=== PATIENT | female | born 1960 | race Caucasian/White ===

== ENCOUNTER → 2016-12-04 | Outpatient (CLI) | payer OTHER, BC ==
--- NOTE | 2016-12-06 13:12 | MM ---
Reason for exam: screening (asymptomatic). Last mammogram was performed 1 year ago. History: Patient is postmenopausal and had first child at age 34. Took estrogen for 1 year. Physical Findings: A clinical breast exam by your physician is recommended on an annual basis and results should be correlated with mammographic findings. MG Screening Mammo w CAD Bilateral CC and MLO view(s) were taken. Prior study comparison: November 21, 2015, bilateral MG screening mammo w CAD. September 24, 2014, bilateral MG screening mammo w CAD. There are scattered fibroglandular densities. There is no discrete abnormality. No significant changes when compared with prior studies. ASSESSMENT: Negative, BI-RAD 1 RECOMMENDATION: Routine screening mammogram of both breasts in 1 year.
== END | disposition home or self-care (01) ==
LOC: RADMAMWWP 09:01
PROVIDERS: ATTEND Obstetrics & Gynecology
DX: Z12.31 Encounter for screening mammogram for malignant neoplasm of breast (principal)

== ENCOUNTER → 2018-04-04 | Outpatient (CLI) | payer OTHER, BC ==
--- NOTE | 2018-04-05 10:17 | BD ---
EXAMINATION TYPE: Axial Bone Density DATE OF EXAM: 04/04/2018 COMPARISON: 09.24.2014 CLINICAL HISTORY: 57 YR OLD FEMALE....ICD-10 CODE: Z13.820 SCREENING FOR OSTEOPOROSIS, M89.9 DISOR HENRY OF BONE Height: 63.5 Weight: 160 FRAX RISK QUESTIONS: History of Fracture in Adulthood: YES Current Tobacco Use: YES RISK FACTORS HISTORY OF: HX OF LT LOWER LEG FX...< 50 YRS OLD History of Wrist Fracture: LT WRIST...< 51 YRS OLD Active: YES Diet low in dairy products/other sources of calcium: NO Postmenopausal woman: YES AT 50 YRS OLD MEDICATIONS: Prednisone or other steroids: ONLY PRN Osteoporosis Medications: YES, FOSAMAX, X 3 YRS NOW Additional Medications: BP MEDS, STATINS FOR CHOLESTEROL, VIT D, HORMONE CREAM. Additional History: HYPERTENSION, OSTEOPENIA EXAM MEASUREMENTS: Bone mineral densitometry was performed using the [employer] System. Bone mineral density as measured about the Lumbar spine is: ----- L1-L4(G/cm2): 1.120 T Score Values are as follows: ----- L1: -0.9 ----- L2: -0.2 ----- L3: -0.8 ----- L4: -0.3 ----- L1-L4: -0.5 Bone mineral density has: Increased 8.9% since study of: 09.24.2014 Bone mineral density about the R hip (g/cm2): 0.892 Bone mineral density about the L hip (g/cm2): 0.911 T Score values are as follows: -----R Neck: -1.5 -----L Neck: -1.4 -----R Total: -0.9 -----L Total: -0.8 Bone mineral density has: Decreased -1.5% since study of: 09.24.2014 FRAX%s: THERE IS A 12.8% CHANCE OF MAJOR OSTEOPOROTIC FX AND A 1.9% FOR A HIP FX......PROBABILITY OF FX IN 10 YRS TIME IMPRESSION: Osteopenia (T Score between -2.5 and -1). There is slightly increased risk of fracture and the patient may be considered for treatment. Re-Screen 2-5 years. NOTE: T-SCORE=SD OF THE YOUNG ADULT MEAN.
--- NOTE | 2018-04-05 12:17 | MM ---
Reason for exam: screening (asymptomatic). Last mammogram was performed 1 year and 4 months ago. History: Patient is postmenopausal and had first child at age 34. Took estrogen for 1 year. Physical Findings: A clinical breast exam by your physician is recommended on an annual basis and results should be correlated with mammographic findings. MG Screening Mammo w CAD Bilateral CC and MLO view(s) were taken. Prior study comparison: December 04, 2016, bilateral MG screening mammo w CAD. November 21, 2015, bilateral MG screening mammo w CAD. The breast tissue is heterogeneously dense. This may lower the sensitivity of mammography. No suspicious abnormality. No significant changes when compared with prior studies. ASSESSMENT: Negative, BI-RAD 1 RECOMMENDATION: Routine screening mammogram of both breasts in 1 year.
== END | disposition home or self-care (01) ==
LOC: RADMAMWWP 15:03
PROVIDERS: ATTEND Obstetrics & Gynecology
DX: Z12.31 Encounter for screening mammogram for malignant neoplasm of breast (principal); Z13.820 Encounter for screening for osteoporosis; M85.80 Other specified disorders of bone density and structure, unspecified site
CPT/HCPCS: 77067; 77080

== ENCOUNTER → 2019-06-09 | Outpatient (CLI) | payer OTHER, BC ==
--- NOTE | 2019-06-12 09:33 | MM ---
Reason for exam: screening (asymptomatic). Last mammogram was performed 1 year and 2 months ago. History: Patient is postmenopausal and had first child at age 34. Took estrogen for 1 year. Physical Findings: A clinical breast exam by your physician is recommended on an annual basis and results should be correlated with mammographic findings. MG Screening Mammo w CAD Bilateral CC and MLO view(s) were taken. Prior study comparison: April 04, 2018, bilateral MG screening mammo w CAD. December 04, 2016, bilateral MG screening mammo w CAD. The breast tissue is heterogeneously dense. This may lower the sensitivity of mammography. There is no discrete abnormality. ASSESSMENT: Negative, BI-RAD 1 RECOMMENDATION: Routine screening mammogram of both breasts in 1 year.
== END | disposition home or self-care (01) ==
LOC: RADMAMWWP 09:00
PROVIDERS: ATTEND Obstetrics & Gynecology
DX: Z12.31 Encounter for screening mammogram for malignant neoplasm of breast (principal)
CPT/HCPCS: 77067

== ENCOUNTER → 2020-04-03 | Outpatient (CLI) | payer OTHER ==
--- NOTE | 2020-04-03 10:12 | XR ---
Right shoulder HISTORY: Right shoulder strain, pain 4 views of the right shoulder Bone mineralization, joint spaces and alignment are maintained. No fracture or dislocation. IMPRESSION: Normal right shoulder.
== END | disposition home or self-care (01) ==
LOC: RADXRMAIN 09:47
PROVIDERS: ATTEND Emergency Medicine
DX: S46.911A Strain of unspecified muscle, fascia and tendon at shoulder and upper arm level, right arm, initial encounter (principal)

== ENCOUNTER → 2020-11-03 | Outpatient (CLI) | payer BC ==
--- NOTE | 2020-11-03 19:27 | BD ---
EXAMINATION TYPE: Axial Bone Density DATE OF EXAM: 11/03/2020 COMPARISON: 04/04/2018 CLINICAL HISTORY: Postmenopausal screening Height: 63.7 IN Weight: 159 LBS FRAX RISK QUESTIONS: Current Tobacco Use: YES RISK FACTORS HISTORY OF: History of Wrist Fracture: LT WRIST AGE 7 Active: YES Postmenopausal woman: AGE 53 MEDICATIONS: Osteoporosis Medications: YES Which medication: Actonel How Lon YEARS Additional Medications: VIT D, ACTONEL, ATORVASTATIN, ATENOLOL, VITAMINS EXAM MEASUREMENTS: Bone mineral densitometry was performed using the [employer] System. Bone mineral density as measured about the Lumbar spine is: ----- L1-L4(G/cm2): 1.154 T Score Values are as follows: ----- L2: 0.5 ----- L3: -0.3 ----- L4: -0.4 ----- L1-L4: -0.2 Bone mineral density has: Increased 3.3% since study of: 04/04/2018 Bone mineral density about the R hip (g/cm2): 0.834 Bone mineral density about the L hip (g/cm2): 0.849 T Score values are as follows: -----R Neck: -1.5 -----L Neck: -1.4 -----R Total: -0.8 -----L Total: -0.7 Bone mineral density has: Increased 1.6% since study of: 04/04/2018 IMPRESSION: Osteopenia (T Score between -2.5 and -1). There is slightly increased risk of fracture and the patient may be considered for treatment. Re-Screen 2-5 years. NOTE: T-SCORE=SD OF THE YOUNG ADULT MEAN.
--- NOTE | 2020-11-05 08:22 | MM ---
Reason for exam: screening (asymptomatic). Last mammogram was performed 1 year and 5 months ago. History: Patient is postmenopausal and had first child at age 34. Took hormonal contraceptives for 5 years. Took estrogen for 1 year. Physical Findings: A clinical breast exam by your physician is recommended on an annual basis and results should be correlated with mammographic findings. MG Screening Mammo w CAD Bilateral CC and MLO view(s) were taken. Prior study comparison: June 09, 2019, bilateral MG screening mammo w CAD. April 04, 2018, bilateral MG screening mammo w CAD. There are scattered fibroglandular densities. No significant changes when compared with prior studies. ASSESSMENT: Benign, BI-RAD 2 RECOMMENDATION: Routine screening mammogram of both breasts in 1 year.
== END ==
LOC: RADMAMWWP 15:03
PROVIDERS: ATTEND Obstetrics & Gynecology
DX: Z12.31 Encounter for screening mammogram for malignant neoplasm of breast (principal); Z13.820 Encounter for screening for osteoporosis; M85.89 Other specified disorders of bone density and structure, multiple sites; Z78.0 Asymptomatic menopausal state
CPT/HCPCS: 77067; 77080

== ENCOUNTER → 2021-12-17 | Outpatient (CLI) | payer BC ==
--- NOTE | 2021-12-23 08:25 | MM ---
Reason for exam: screening (asymptomatic). Last mammogram was performed 1 year and 1 month ago. History: Patient is postmenopausal and had first child at age 34. Took hormonal contraceptives for 5 years. Took estrogen for 1 year. Physical Findings: A clinical breast exam by your physician is recommended on an annual basis and results should be correlated with mammographic findings. MG Screening Mammo w CAD Bilateral CC, MLO, and XCCL view(s) were taken. Prior study comparison: November 03, 2020, bilateral MG screening mammo w CAD. June 09, 2019, bilateral MG screening mammo w CAD. There are scattered fibroglandular densities. Focal asymmetry left MLO view. This finding is changed when compared with previous exams. ASSESSMENT: Incomplete: need additional imaging evaluation, BI-RAD 0 RECOMMENDATION: Special view mammogram of the left breast. If lesion persists on supplemental views, image directed ultrasound is recommended. [facility] will attempt to contact patient to return for supplemental views and ultrasound if indicated.
== END | disposition home or self-care (01) ==
LOC: RADMAMWWP 09:26
PROVIDERS: ATTEND Obstetrics & Gynecology
DX: Z12.31 Encounter for screening mammogram for malignant neoplasm of breast (principal); Z78.0 Asymptomatic menopausal state
CPT/HCPCS: 77067

== ENCOUNTER → 2021-12-24 | Outpatient (CLI) | payer BC ==
--- NOTE | 2021-12-24 12:41 | MM ---
Reason for exam: additional evaluation requested from abnormal screening. Last mammogram was performed less than 1 month ago. History: Patient is postmenopausal and had first child at age 34. Took hormonal contraceptives for 5 years. Took estrogen for 1 year. Physical Findings: A clinical breast exam by your physician is recommended on an annual basis and results should be correlated with mammographic findings. MG 3D Work Up W/Cad LT LM and spot compression MLO view(s) were taken of the left breast. Prior study comparison: December 17, 2021, bilateral MG screening mammo w CAD. November 03, 2020, bilateral MG screening mammo w CAD. April 04, 2018, bilateral MG screening mammo w CAD. There are scattered fibroglandular densities. No significant new findings when compared with previous films. Results were given to the patient verbally at the time of the exam. ASSESSMENT: Probably benign, BI-RAD 3 RECOMMENDATION: Follow-up diagnostic mammogram of the left breast in 6 months.
== END | disposition home or self-care (01) ==
LOC: RADMAMWWP 08:43
PROVIDERS: ATTEND Obstetrics & Gynecology
DX: R92.8 Other abnormal and inconclusive findings on diagnostic imaging of breast (principal); Z78.0 Asymptomatic menopausal state
CPT/HCPCS: 77061; 77065

== ENCOUNTER → 2022-06-28 | Outpatient (CLI) | payer BC ==
--- NOTE | 2022-06-28 11:19 | MM ---
Reason for Exam: Follow-up at short interval from prior study. Last screening mammogram was performed 6 month(s) ago. Patient History: Menarche at age 13. First Full-Term at age 34. Late child-bearing (after 30). Postmenopausal. Patient used Estrogen for 1 year. Patient used Hormonal Contraceptives for 5 years. Risk Values: Marilin 5 year model risk: 2.0%. NCI Lifetime model risk: 9.7%. Prior Study Comparison: 11/03/2020 Bilateral Screening Mammogram, [facility]. 12/17/2021 Bilateral Screening Mammogram, [facility]. 12/24/2021 Left Diagnostic Mammogram, [facility]. Tissue Density: Left: The breast tissue is heterogeneously dense. This may lower the sensitivity of mammography. Findings: Analyzed By CAD. Area of concern within the left breast retroalveolar and slightly inferior on left MLO view seen on 12/17/2021 is not definitively visualized on today's exam. Area of concern within the left breast retroalveolar and slightly inferior on left MLO view seen on 12/17/2021 is not definitively visualized on today's exam. No suspicious masses, consultations or distortions. Overall Assessment: Negative, BI-RAD 1 Management: Screening Mammogram of both breasts in 1 year. A clinical breast exam by your physician is recommended on an annual basis and results should be correlated with mammographic findings. This exam should not preclude additional follow-up of suspicious palpable abnormalities. Results were given to the patient verbally at the time of exam. Electronically signed and approved by: Bridger Gleason DO
== END | disposition home or self-care (01) ==
LOC: RADMAMWWP 10:43
PROVIDERS: ATTEND Obstetrics & Gynecology
DX: R92.8 Other abnormal and inconclusive findings on diagnostic imaging of breast (principal); Z78.0 Asymptomatic menopausal state
CPT/HCPCS: 77061; 77065

== ENCOUNTER → 2022-11-26 | Outpatient (CLI) | payer BC ==
--- NOTE | 2022-11-26 15:53 | US ---
EXAMINATION TYPE: US kidneys/renal and bladder DATE OF EXAM: 11/26/2022 COMPARISON: 11/12/2022 CLINICAL HISTORY: N13.39 hydronephrosis, R10.11 RUQ pain, R93.41 abnormal find. EXAM MEASUREMENTS: Right Kidney: 13.2 x 4.6 x 4.8 cm Left Kidney: 11.7 x 5.3 x 4.8 cm Right Kidney: Hydronephrosis similar to prior exam Left Kidney: wnl Bladder: wnl Bilateral Jets seen: Yes No nephrolithiasis is seen. No masses are identified. The urinary bladder is anechoic. Bilateral u reteral jets are seen. IMPRESSION: Stable severe right-sided hydronephrosis.
== END | disposition home or self-care (01) ==
LOC: RADUSWWP 15:28
PROVIDERS: ATTEND Family Medicine
DX: N13.39 Other hydronephrosis (principal); R10.11 Right upper quadrant pain; R93.41 Abnormal radiologic findings on diagnostic imaging of renal pelvis, ureter, or bladder
CPT/HCPCS: 76770

== ENCOUNTER → 2022-12-10 | Outpatient (CLI) | payer BC ==
--- NOTE | 2022-12-10 11:20 | CT ---
EXAMINATION TYPE: CT urogram wo/w con DATE OF EXAM: 12/10/2022 HISTORY: Rt kidney pain. Recent abnormal ultrasound. CT DLP: 2505mGycm Automated Exposure Control for Dose Reduction was Utilized. CONTRAST: CT scan of the abdomen and pelvis is performed without oral and without and with IV Contrast, patient injected with 100 mL of Isovue 300. Urogram protocol with 3-D reconstructed images created on an [employer] workstation and reviewed. COMPARISON: Renal ultrasound March 28, 2023 FINDINGS: KUB: No renal calculi seen bilaterally on noncontrast images. Postcontrast images show symmetric patt ical medullary uptake and excretion with severe right-sided hydronephrosis redemonstrated. There is o ccasional subcentimeter rounded low dense lesion in the right kidney. No concerning solid or cystic m ass in the left kidney. Opacified left ureter shows no worrisome mass or calculus. There is no right- sided hydroureter but port contrast uptake identified. Urinary bladder appears within normal limits w ithout intraluminal mass or calculus. LUNG BASES: No significant abnormality is appreciated. LIVER/GB: Cholecystectomy clips are present. PANCREAS: No significant abnormality is seen. SPLEEN: No significant abnormality is seen. ADRENALS: No significant abnormality is seen. KIDNEYS: No significant abnormality is seen. BOWEL: No significant abnormality is seen. UTERUS/ADNEXA: Anteverted uterus. LYMPH NODES: No greater than 1cm abdominal or pelvic lymph nodes are appreciated. OSSEOUS STRUCTURES: No significant abnormality is seen. OTHER: No significant additional abnormality is seen. IMPRESSION: Severe right-sided hydronephrosis redemonstrated. There is no delayed excretion or hydrou reter. Findings are consistent with a UPJ stricture or stenosis.
== END | disposition home or self-care (01) ==
LOC: RADCTMAIN 09:54
PROVIDERS: ATTEND Urology
DX: N13.30 Unspecified hydronephrosis (principal)
CPT/HCPCS: 74178; 74400; Q9967

== ENCOUNTER → 2022-12-22 | Outpatient (CLI) | payer BC ==
[~2022-12-22] MED LIST: FUROSEMIDE 10 MG/ML 2 ML VIAL IV ONE
--- NOTE | 2022-12-23 08:14 | NM ---
EXAMINATION TYPE: NM lasix renogram DATE OF EXAM: 12/22/2022 COMPARISON: NONE HISTORY: N13.30 right flank pain and pelvic pain Following administration of 10.3 mCi Tc 99m MAG3 with 20mg Lasix. Immediate images post injection FINDINGS: Left: 56.8 %. Right: 43.2 %. Max renal flow left: 3.0 minutes. Max renal flow right: 3.5 minutes. Satisfactory accumulation of radiotracer within both renal collecting systems. After the administrati on of Lasix, there is prompt excretion from both collecting systems. T 1/2 left: 16.7 minutes. T 1/2 right: NA minutes. There is symmetrical flow into the bilateral kidneys. Excretion initially is symmetrical. However, th ere is continual increased radiotracer within the left renal pelvis. IMPRESSION: 1. Right renal collecting system obstruction. 2. Diminished right renal excretion.
== END | disposition home or self-care (01) ==
LOC: RADNMMAIN 11:46
PROVIDERS: ATTEND Urology
DX: N13.30 Unspecified hydronephrosis (principal); N28.89 Other specified disorders of kidney and ureter
CPT/HCPCS: 78708; A9562

== ENCOUNTER → 2023-02-10 | Outpatient (CLI) | payer BC ==
[2023-02-10 15:57] LABS: BUN/Creat Ratio 28.33 Ratio (12.00-20.00); Calcium 9.7 mg/dL (8.7-10.3); Carbon Dioxide 26.4 mmol/L (21.6-31.8); Chloride 100 mmol/L (96-109); Glucose 95 mg/dL (70-110); Potassium 3.8 mmol/L (3.5-5.5); Sodium 138 mmol/L (135-145)
[2023-02-10 16:08] LABS: Appearance,Urine Clear (Clear); Bilirubin,Urine Negative (Negative); Blood,Urine Negative (Negative); Color,Urine Yellow (Yellow); Ketones,Urine Negative (Negative); Nitrite,Urine Negative (Negative); PH, Urine 6.5; Specific Gravity,Urine 1.017 (1.001-1.030); Urobilinogen,Urine 0.2
[2023-02-10 20:35] LABS: Basophils # (A) 0.04 X 10*3/uL (0.00-0.10); Basophils % (A) 0.5 %; Eosinophils # (A) 0.17 X 10*3/uL (0.04-0.35); Eosinophils % (A) 2.2 %; HCT 44.5 % (37.2-46.3); HGB 14.7 d/dL (12.0-15.0); Lymphocytes # (A) 2.08 X 10*3/uL (0.90-5.00); Lymphocytes % (A) 27.5 %; MCH 29.6 pg (27.0-32.0); MCV 89.7 FL (80.0-97.0); Mean Platelet Volume 11.1 FL (9.5-12.2); Monocytes # (A) 0.59 X 10*3/uL (0.20-1.00); Monocytes % (A) 7.8 %; NRBC Per 100 WBC 0 X 10*3/uL (0.00-0.01); Neutrophils # (A) 4.65 X 10*3/uL (1.80-7.70); Neutrophils % (A) 61.6 %; Platelet Count 272 X 10*3/uL (140-440); RBC 4.96 X 10*6/uL (4.10-5.20); WBC 7.56 X 10*3/uL (4.50-10.00)
== END | disposition home or self-care (01) ==
LOC: LABPAT 10:27
PROVIDERS: ATTEND Urology
DX: Z01.812 Encounter for preprocedural laboratory examination (principal); N13.30 Unspecified hydronephrosis; R31.29 Other microscopic hematuria
CPT/HCPCS: 36415; 80048; 81003; 85025; 87086

== ENCOUNTER 2023-02-17 12:52 | Day surgery (SDC) | payer BC ==
[2023-02-15 10:23] VITALS: BMI 27.4
[~2023-02-17 12:52] MED LIST changes: +DEXAMETHASONE SOD PHOSPHATE 4 MG/ML 1 ML VIAL IV ONE; -FUROSEMIDE 10 MG/ML 2 ML VIAL IV ONE; +HYDROmorphone 0.5 MG/0.5 ML SYRINGE IVP PRN; +ONDANSETRON 4 MG/2 ML VIAL IVP ONE
[2023-02-17] MEDS: HEPARIN SODIUM,PORCINE/PF 5,000 UNIT/0.5 ML SYRINGE SQ PRN ×2 (13:32→14:14)
[2023-02-17] MEDS: LACTATED RINGERS 1,000 ML IV SCH (13:32)
[2023-02-17] MEDS ORDERED: MIDAZOLAM 2 MG/2 ML VIAL IVP ONE (13:47)
[2023-02-17] MEDS ORDERED: HYDROmorphone 1 MG/ML 1 ML SYRINGE IVP PRN (14:18)
[2023-02-17] MEDS ORDERED: ONDANSETRON 4 MG/2 ML VIAL IVP PRN (14:18)
--- NOTE | 2023-02-17 14:22 | P.HPIHPCON ---
History of Present Illness H&P Date: 02/17/23 This is a 62-year-old female with history of right-sided hydronephrosis, seen on a CT urogram. She is symptomatic from her hydronephrosis. Underwent a Lasix renogram which was consistent with obstruction. Discussed with her given this finding the option of a robotic pyeloplasty versus endopyelotomy. Risk and benefit of each approach was discussed. She agreed to pyeloplasty. Discussed risk which includes but not limited to bleeding, infection, injury to nearby organs, potential of recurrence of stricture, potential requiring nephrectomy. Discussed the potential persistent pain. Risks of medical complication was also discussed. She understood all the risk and agreed to proceed with a robotic right-sided pyeloplasty Consent for Procedure: I have explained the operation/procedure to the patient, including the risks, benefits, side effects, alternative therapies (including not receiving the proposed treatment or service), the likelihood of the patient achieving his/her goals, and potential recuperation problems for the procedure/sedation/analgesia, as well as any blood products, if indicated. I also explained to the patient the risks, benefits and side effects of the alternatives, as well as the risks related to not receiving the proposed procedure, care, treatment, or services. Past Medical History Past Medical History: Hyperlipidemia, Hypertension, Skin Disorder Additional Past Medical History / Comment(s): Heart skips beats sometimes. Psoriasis. History of Any Multi-Drug Resistant Organisms: None Reported Past Surgical History: Section, Cholecystectomy Past Anesthesia/Blood Transfusion Reactions: No Reported Reaction Past Psychological History: No Psychological Hx Reported Smoking Status: Current every day smoker Past Alcohol Use History: Occasional Additional Past Alcohol Use History / Comment(s): Smokes 6-7 cigarettes daily, started at age 19. Past Drug Use History: None Reported - Past Family History Mother Family Medical History: Deep Vein Thrombosis (DVT) Sister(s) Family Medical History: Cancer Additional Family Medical History / Comment(s): Pancreatic cancer. Medications and Allergies Home Medications Medication Instructions Recorded Confirmed Type Atenolol/Chlorthalidone 1 each PO QAM 02/15/23 02/15/23 History [Atenolol-Chlorthalidone 100-25] Rosuvastatin Calcium 40 mg PO QAM 02/15/23 02/15/23 History lisinopriL [Zestril] 10 mg PO QAM 02/15/23 02/15/23 History Allergies Allergy/AdvReac Type Severity Reaction Status Date / Time No Known Allergies Allergy Verified 02/17/23 13:17 Surgical - Exam Vital Signs Temp Pulse Resp BP Pulse Ox 97.5 F L 58 L 16 155/70 97 02/17/23 13:15 02/17/23 13:15 02/17/23 13:15 02/17/23 13:15 02/17/23 13:15 - General no distress, no pain - Eyes normal ocular movement, no pale - ENT normal nares, normal mucosa - Respiratory normal expansion, normal respiratory effort - Psychiatric oriented to time, oriented to person, oriented to place Assessment and Plan Assessment: OR for right-sided robotic pyeloplasty
[2023-02-17] MEDS ORDERED: MIDAZOLAM 2 MG/2 ML VIAL ONE (14:58)
[2023-02-17] MEDS ORDERED: fentaNYL (PF) 50 MCG/ML 2 ML AMP ONE (14:58)
[2023-02-17] MEDS ORDERED: SUCCINYLCHOLINE CHLORIDE 200 MG/10 ML VIAL IV ONE (14:58)
[2023-02-17] MEDS ORDERED: HYDROmorphone (PF) 1 MG/ML ONE (14:58)
[2023-02-17] MEDS ORDERED: LIDOCAINE 2% INJ 20 MG/ML (2 ML VIAL) ONE (14:58)
[2023-02-17] MEDS ORDERED: NEOSTIGMINE 1 MG/ML 10 ML VIAL ONE (14:58)
[2023-02-17] MEDS ORDERED: PROPOFOL 10 MG/ML 20 ML VIAL IV ONE (14:58)
[2023-02-17] MEDS ORDERED: ROCURONIUM 10 MG/ML (5 ML VIAL) IV ONE (14:58)
[2023-02-17] MEDS ORDERED: ROPIVACAINE 5 MG/ML 30 ML VIAL ONE (14:58)
[2023-02-17] MEDS ORDERED: DEXAMETHASONE SOD PHOSPHATE 4 MG/ML 1 ML VIAL ONE (14:58)
[2023-02-17] MEDS ORDERED: GLYCOPYRROLATE 0.2 MG/ML 2 ML VIAL ONE (14:58)
[2023-02-17] MEDS ORDERED: SODIUM CHLORIDE 0.9% (PF) 10 ML VIAL ONE (14:58)
[2023-02-17] MEDS ORDERED: KETOROLAC 30 MG/ML 1 ML VIAL ONE (14:58)
[2023-02-17] MEDS ORDERED: BUPIVACAINE (PF) 0.25% 30 ML VIAL SQ ONE (15:40)
--- NOTE | 2023-02-17 17:30 | P.OP ---
Date of Procedure: 02/17/23 Preoperative Diagnosis: Right-sided hydronephrosis Postoperative Diagnosis: same Procedure(s) Performed: Robotic-assisted laparoscopic pyeloplasty on the right Implants: 6FR x 24 cm stent Anesthesia: DARRIN Surgeon: Prosper Bose Estimated Blood Loss (ml): 25 Pathology: other (UPJ) Condition: stable Disposition: PACU Indications for Procedure: This is a 62-year-old female with history of right-sided hydronephrosis, seen on a CT urogram. She is symptomatic from her hydronephrosis. Underwent a Lasix renogram which was consistent with obstruction. Discussed with her given this finding the option of a robotic pyeloplasty versus endopyelotomy. Risk and benefit of each approach was discussed. She agreed to pyeloplasty. Discussed risk which includes but not limited to bleeding, infection, injury to nearby organs, potential of recurrence of stricture, potential requiring nephrectomy. Discussed the potential persistent pain. Risks of medical complication was also discussed. She understood all the risk and agreed to proceed with a robotic r ight-sided pyeloplasty Description of Procedure: The patient was taken to the operating room . General anesthesia was induced. She was prepped and draped in sterile fashion, she was placed in modified flank position . All pressure points were padded. The abdominal insufflation was achieved with the Veress needle. A 8 mm camera port was placed. Robotic trocars and assistant baseball coach ports were placed under direct vision. The robot was docked into place. The colon was mobilized medially by incising along the white line of Toldt. At this time the the ureter was visualized. . Dissection off the ureter was carried all the way up to the renal pelvis. Of note involving the UPJ and the renal pelvis there was significant inflammatory response. After the pelvis and the ureter was mobilized, At this time the ureter was disconnected from the renal pelvis. The ureter was spatulated. It was noted that the UPJ was narrowed, additionally there was a crossing vessel but it did not appear to be compressing on the UPJ. At this time ureter was reanastomosed back to the renal pelvis using 4-0 vlock in running fashion. Ensuring that the anastomosis was done at the most dependent portion of the renal pelvis. After completing the posterior portion of the anastomosis a sensor wire was advanced through an Angiocath was placed along the lateral surface of the abdomen. The sensor wire was guided to the ureter next a ureteral stent was passed over the wire. Ensuring that the stent was advanced all the way up into the bladder. Next the anastomosis was completed. The crossing vessel was further mobilized away from from the renal pelvis to ensure that it's not compressing the UPJ at all. A A PETER drain was placed through the lower robotic trocor incision. The robot was then de-docked . Staff Accountant fascia was closed using 0 Vicryl. . Skin was closed with subcuticular sutures and dermabond. The patient was awoken from general anesthesia in stable condition. all counts were correct Please refer to the final pathology report for final diagnosis
--- NOTE | 2023-02-17 20:43 | P.ANPRN ---
Procedure Note - Anesthesia - Nerve Block Performed Bilateral Erector Spinae Single Time Out Performed: Yes Date of Procedure: 02/17/23 Procedure Start Time: 13:47 Procedure Stop Time: 13:54 Location of Patient: PreOp Indication: Acute Post-Operative Pain, Requested by Surgeon Sedation Type: Sedate with meaningful contact maintained Preparation: Sterile Prep Position: Prone Needle Types: Pajunk Needle Gauge: 21 Ultrasound used to visualize needle placement: Yes Ultrasound used to observe medication spread: Yes Blood Aspirated: No Pain Paresthesia on Injection Noted: No Resistance on Injection: Normal Image Stored and Saved: Yes Events: Uneventful and Well Tolerated (Ropivacaine 0.5% 15 mL plus normal saline 10 mL plus dexamethasone 4 mg given bilaterally at L1)
[2023-02-17] MEDS: KETOROLAC 15 MG/ML 1 ML VIAL IVP SCH ×2 (21:08→23:46)
[2023-02-17] MEDS: D5-0.45% NACL WITH KCL 20MEQ/L 1,000 ML IV SCH (21:09)
[2023-02-17] MEDS: HEPARIN SODIUM,PORCINE/PF 5,000 UNIT/0.5 ML SYRINGE SQ SCH (21:13)
[2023-02-17] MEDS: HYDROcodone/APAP 5-325MG 1 EACH TAB PO PRN (23:47)
[2023-02-18] MEDS: D5-0.45% NACL WITH KCL 20MEQ/L 1,000 ML IV SCH ×2 (01:03→04:29)
[2023-02-18] MEDS: HEPARIN SODIUM,PORCINE/PF 5,000 UNIT/0.5 ML SYRINGE SQ SCH (06:11)
[2023-02-18] MEDS: KETOROLAC 15 MG/ML 1 ML VIAL IVP SCH ×2 (06:11→13:17)
[2023-02-18] MEDS: LACTATED RINGERS 1,000 ML IV SCH (08:03)
[2023-02-18] MEDS: HYDROcodone/APAP 5-325MG 1 EACH TAB PO PRN ×2 (08:10→13:16)
--- NOTE | 2023-02-18 08:26 | P.PN ---
Subjective Progress Note Date: 02/18/23 Principal diagnosis: UPJ Obstruction, s/p pyeloplasty The patient underwent an uncomplicated robotic-assisted laparoscopic right pyeloplasty yesterday. She had no problems overnight, but this morning experienced right-sided abdominal pain which is currently subsiding. She denies chest pain, shortness of breath, nausea, and vomiting. Objective - Vital Signs Vital signs: Vital Signs Temp 98 F 02/18/23 07:00 Pulse 60 02/18/23 07:00 Resp 14 02/18/23 07:00 BP 118/64 02/18/23 07:00 Pulse Ox 96 02/18/23 07:00 FiO2 Intake & Output 02/17/23 02/18/23 02/18/23 18:59 06:59 18:59 Intake Total 1600 Output Total 175 600 Balance 1425 -600 Weight 73.074 kg 73.074 kg Intake: IV 1600 Output: Urine 150 600 Estimated Blood Loss 25 Other: Voiding Method Toilet - Constitutional General appearance: Present: average body habitus, no acute distress - Gastrointestinal Gastrointestinal Comment(s): Soft, nondistended. Incisions clean, dry, and intact. - Psychiatric Psychiatric: Present: A&O x's 3 Assessment and Plan (1) Ureteropelvic junction (UPJ) obstruction Current Visit: Yes Status: Acute Code(s): N13.5 - CROSSING VESSEL AND STRICTURE OF URETER W/O HYDRONEPHROSIS SNOMED Code(s): 44513417 Plan: The Ramos catheter and PETER drain will be removed, as there is minimal PETER output. Discharge home is anticipated later today or tomorrow morning.
[2023-02-18] MEDS ORDERED: lisinopriL 10 MG TAB PO SCH (09:00)
[2023-02-18] MEDS ORDERED: atenoloL 50 MG TAB PO SCH (09:00)
[2023-02-18] MEDS ORDERED: ATORVASTATIN 80 MG TAB PO SCH (09:00)
[2023-02-18] MEDS ORDERED: CHLORTHALIDONE 25 MG TAB PO SCH (09:00)
--- NOTE | 2023-02-18 13:13 | P.DS ---
Providers Expected date of discharge: 02/18/23 Attending physician: Prosper Bose MD Primary care physician: Naren Melgar - Discharge Diagnosis(es) (1) Ureteropelvic junction (UPJ) obstruction Current Visit: Yes Status: Acute Hospital Course: On the day of admission, the patient underwent an uncomplicated robotic-assisted laparoscopic right pyeloplasty. She had no problems overnight, but the morning after surgery she experienced right-sided abdominal pain which subsided. She denied chest pain, shortness of breath, nausea, and vomiting. Examination was unremarkable, and she was discharged home. Procedures: Robotic-assisted laparoscopic right pyeloplasty on 02/17/2023. Patient Condition at Discharge: Good Plan - Discharge Summary Discharge Rx Participant: Yes New Discharge Prescriptions: New Tolterodine ER [Detrol LA] 4 mg PO DAILY #30 cap HYDROcodone/APAP 5-325MG [Rayle 5-325] 1 - 2 tab PO Q6HR PRN #6 tab PRN Reason: Pain No Action lisinopriL [Zestril] 10 mg PO QAM Atenolol/Chlorthalidone [Atenolol-Chlorthalidone 100-25] 1 each PO QAM Rosuvastatin Calcium 40 mg PO QAM Discharge Medication List Atenolol/Chlorthalidone [Atenolol-Chlorthalidone 100-25] 1 each PO QAM 02/15/23 [History] Rosuvastatin Calcium 40 mg PO QAM 02/15/23 [History] lisinopriL [Zestril] 10 mg PO QAM 02/15/23 [History] HYDROcodone/APAP 5-325MG [Rayle 5-325] 1 - 2 tab PO Q6HR PRN #6 tab 02/18/23 [Rx] Tolterodine ER [Detrol LA] 4 mg PO DAILY #30 cap 02/18/23 [Rx] Follow up Appointment(s)/Referral(s): Prosper Bose MD [STAFF PHYSICIAN] - 03/16/23 Activity/Diet/Wound Care/Special Instructions: Diet as tolerated. Drink plenty of fluids. No lifting or strenuous activity. Discharge Disposition: HOME SELF-CARE
[2023-02-18 14:23] VITALS: BP 127/72; PULSE 55; RESP 16; TEMP 98.2
== END 2023-02-18 14:31 | disposition home or self-care (01) ==
LOC: OR 12:52 → 4SSUR 17:49 → OR 02-18 14:31
PROVIDERS: ATTEND Urology
DX: N13.1 Hydronephrosis with ureteral stricture, not elsewhere classified (principal); I10 Essential (primary) hypertension; E78.5 Hyperlipidemia, unspecified; Z98.891 History of uterine scar from previous surgery; Z90.49 Acquired absence of other specified parts of digestive tract; F17.200 Nicotine dependence, unspecified, uncomplicated; Z79.899 Other long term (current) drug therapy
CPT/HCPCS: 50544; 64999; 86900; 86901; 86850; C1769 ×2; J2250; J1100; J0690; J2405 ×2; J1170; J1885 ×2; J1644 ×2; 88307

== ENCOUNTER → 2023-04-15 | Outpatient (CLI) | payer BC ==
--- NOTE | 2023-04-15 15:39 | XR ---
EXAMINATION TYPE: XR thoracic spine complete DATE OF EXAM: 04/15/2023 CLINICAL HISTORY: pain TECHNIQUE: Frontal, lateral, and swimmer's view of thoracic spine are obtained. COMPARISON: None. FINDINGS: Thoracic spine show satisfactory alignment without evidence of acute fracture or dislocatio n. Vertebral body heights are preserved. Mild scattered degenerative disc space narrowing and spondy losis. Visualized ribs are unremarkable. IMPRESSION: No acute fracture or dislocation is seen in the thoracic spine. ICD 10 NO FRACTURE, INIT IAL EVALUATION
== END | disposition home or self-care (01) ==
LOC: RADXRYALE 15:12
PROVIDERS: ATTEND Physician Assistant Medical
DX: M54.6 Pain in thoracic spine (principal)
CPT/HCPCS: 72072

== ENCOUNTER → 2023-06-29 | Outpatient (CLI) | payer BC ==
--- NOTE | 2023-06-29 23:34 | BD ---
EXAMINATION TYPE: Axial Bone Density DATE OF EXAM: 06/29/2023 CLINICAL HISTORY: 63 years old Female. ICD-10 CODE: M85.88 other bone issue Height: 63.7 in Weight: 159 lbs FRAX RISK QUESTIONS: History of Fracture in Adulthood: lt tib/fib fx age 53; rib fx age 59 Current Tobacco Use: yes RISK FACTORS HISTORY OF: History of Wrist Fracture: lt age 7 Active: yes Postmenopausal woman: age 56 MEDICATIONS: Osteoporosis Medications: yes Which medication: Boniva How Lon years Additional Medications: vit d,cholesterol meds, blood pressure meds EXAM MEASUREMENTS: Bone mineral densitometry was performed using the [employer] System. Bone mineral density as measured about the Lumbar spine is: ----- L1-L4(G/cm2): 1.161 T Score Values are as follows: ----- L1: -0.1 ----- L2: 0.0 ----- L3: -0.4 ----- L4: -0.3 ----- L1-L4: -0.2 Z Score Values are as follows: ----- L1: 1.0 ----- L2: 1.1 ----- L3: 0.8 ----- L4: 0.8 ----- L1-L4: 1.0 Bone mineral density has: Increased 0.6% since study of: 11/03/2020 Bone mineral density about the R hip (g/cm2): 0.878 Bone mineral density about the L hip (g/cm2): 0.902 T Score values are as follows: -----R Neck: -1.7 -----L Neck: -1.6 -----R Total: -1.0 -----L Total: -0.8 Z Score values are as follows: -----R Neck: -0.5 -----L Neck: -0.4 -----R Total: -0.2 -----L Total: 0.0 Bone mineral density has: Decreased -2.7% since study of: 11/03/2020 FRAX%s: The graph provided illustrates a 15.5% chance for a major osteoporotic fx and a 2.8% chance f or the hips probability for fx in 10 years time. IMPRESSION: Osteopenia (T Score between -2.5 and -1). There is slightly increased risk of fracture and the patient may be considered for treatment. Re-Screen 2-5 years. NOTE: T-SCORE=SD OF THE YOUNG ADULT MEAN.
--- NOTE | 2023-06-30 08:56 | MM ---
Reason for Exam: Screening (asymptomatic). Last mammogram was performed 1 year(s) and 6 month(s) ago. Patient History: Menarche at age 13. First Full-Term at age 34. Late child-bearing (after 30). Postmenopausal. Patient used Estrogen for 1 year. Patient used Hormonal Contraceptives for 5 years. Risk Values: Marilin 5 year model risk: 2.1%. NCI Lifetime model risk: 9.4%. Prior Study Comparison: 12/04/2016 Bilateral Screening Mammogram, [facility]. 04/04/2018 Bilateral Screening Mammogram, [facility]. 06/09/2019 Bilateral Screening Mammogram, [facility]. 11/03/2020 Bilateral Screening Mammogram, [facility]. 12/17/2021 Bilateral Screening Mammogram, [facility]. 12/24/2021 Left Diagnostic Mammogram, [facility]. 06/28/2022 Left MG 3D diag mammo w/cad , [facility]. Tissue Density: The breast tissue is heterogeneously dense. This may lower the sensitivity of mammography. Findings: Analyzed By CAD. There is no suspicious group of microcalcifications or new suspicious mass in either breast. Stable benign calcifications within both breasts. Overall Assessment: Benign, BI-RAD 2 Management: Screening Mammogram of both breasts in 1 year. A clinical breast exam by your physician is recommended on an annual basis and results should be correlated with mammographic findings. Note on Marilin scores and lifetime risk: 1. A Marilin score greater than 3% is considered moderate risk. If this is the case, consider specialist referral to assess eligibility for a risk reducing agent. If overall lifetime risk for the development of breast cancer is 20% or higher, the patient may qualify for future screening with alternating mammogram and breast MRI. Electronically signed and approved by: Gorge Claudio D.O.
== END | disposition home or self-care (01) ==
LOC: RADMAMWWP 09:21
PROVIDERS: ATTEND Obstetrics & Gynecology
DX: Z12.31 Encounter for screening mammogram for malignant neoplasm of breast (principal); M85.89 Other specified disorders of bone density and structure, multiple sites; Z78.0 Asymptomatic menopausal state
CPT/HCPCS: 77063; 77067; 77080

== ENCOUNTER → 2024-06-12 | Outpatient (CLI) | payer BC ==
[~2024-06-12] MED LIST changes: -DEXAMETHASONE SOD PHOSPHATE 4 MG/ML 1 ML VIAL IV ONE; +FUROSEMIDE 10 MG/ML 2 ML VIAL IVP ONE; -HYDROmorphone 0.5 MG/0.5 ML SYRINGE IVP PRN; -ONDANSETRON 4 MG/2 ML VIAL IVP ONE
--- NOTE | 2024-06-14 18:58 | NM ---
EXAMINATION TYPE: NM lasix renogram DATE OF EXAM: 06/12/2024 COMPARISON: Nuclear medicine Lasix renogram 05/30/2023, 12/22/2022, CT urogram 12/10/2022 CLINICAL INDICATION: Female, 64 years old with history of N13.30 hydronephrosis Following administration of 10.0 mCi Tc 99m MAG3 with 20mg Lasix. Immediate images post injection FINDINGS: Left: 56.7 %. Previously 56.1 Right: 43.4 %. Previously 43.9 Max renal flow left: 2.6 minutes. Max renal flow right: 2.0 minutes. Satisfactory accumulation of radiotracer within both renal collecting systems. After the administrati on of Lasix, there is prompt excretion from both collecting systems. T 1/2 left: 17.5 minutes. Previously 14.1 T 1/2 right: 28.3 minutes. Previously 27.2 IMPRESSION: 1. 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 2. Normal left renal Lasix renogram. [facility], , 06/14/2024 6:56 PM
== END | disposition home or self-care (01) ==
LOC: RADNMMAIN 12:40
PROVIDERS: ATTEND Urology
DX: N13.30 Unspecified hydronephrosis
CPT/HCPCS: 78708

== ENCOUNTER → 2024-07-02 | Outpatient (CLI) | payer BC ==
--- NOTE | 2024-07-03 10:24 | MM ---
Reason for Exam: Screening (asymptomatic). Last screening mammogram was performed 12 month(s) ago. Patient History: Menarche at age 13. First Full-Term at age 34. Late child-bearing (after 30). Postmenopausal. Patient used Estrogen for 1 year. Patient used Hormonal Contraceptives for 5 years. Risk Values: Marilin 5 year model risk: 2.2%. NCI Lifetime model risk: 9.1%. Prior Study Comparison: 12/24/2021 Left Diagnostic Mammogram, [facility]. 06/28/2022 Left MG 3D diag mammo w/cad LT, [facility]. 06/29/2023 Bilateral MG 3D screening mammo w/cad, [facility]. Tissue Density: The breasts are heterogeneously dense, which may obscure small masses. Findings: Analyzed By CAD. Unchanged bilateral areas of asymmetric density. There is no suspicious group of microcalcifications or new suspicious mass in either breast. Overall Assessment: Benign, BI-RAD 2 Management: Screening Mammogram of both breasts in 1 year. . Patient should continue monthly self-breast exams. A clinical breast exam by your physician is recommended on an annual basis. This exam should not preclude additional follow-up of suspicious palpable abnormalities. Note on Marilin scores and lifetime risk: 1. A Marilin score greater than 3% is considered moderate risk. If this is the case, consider specialist referral to assess eligibility for a risk reducing agent. 2. If overall lifetime risk for the development of breast cancer is 20% or higher, the patient may qualify for future screening with alternating mammogram and breast MRI. [facility], , 07/03/2024 10:21 AM. Electronically signed and approved by: Maddison Cuevas M.D. Radiologist
== END | disposition home or self-care (01) ==
LOC: RADMAMWWP 10:25
PROVIDERS: ATTEND Obstetrics & Gynecology
CPT/HCPCS: 77063; 77067

== ENCOUNTER 2024-08-15 10:46 | Day surgery (SDC) | payer BC ==
[2024-08-15 11:29] VITALS: TEMP 97.3
[2024-08-15] MEDS: IV FLUID CONTINUATION 1,000 ML IV ONE (11:31)
[2024-08-15] MEDS: LACTATED RINGERS 1,000 ML IV SCH (11:38)
[2024-08-15] MEDS ORDERED: PROPOFOL 10 MG/ML 20 ML VIAL IV ONE (12:49)
--- NOTE | 2024-08-15 13:07 | P.PCN ---
Date of Procedure: 08/15/24 Procedure(s) Performed: BRIEF HISTORY: Patient is a 64-year-old pleasant white female scheduled for an elective colonoscopy as a part of screening for colon cancer. PROCEDURE PERFORMED: Colonoscopy with biopsy. PREOPERATIVE DIAGNOSIS: Screening for colon cancer. IV sedation per Anesthesia. PROCEDURE: After informed consent was obtained, the patient, was brought into the endoscopy unit. IV sedation was administered by Anesthesia under continuous monitoring. Digital rectal examination was normal. Initially the Olympus CF-160 flexible video colonoscope was then inserted in the rectum, gradually advanced into the cecum without any difficulty. Careful examination was performed as the scope was gradually being withdrawn. Ileocecal valve and the appendiceal orifice were visualized and appeared normal. Prep was excellent. Mucosa of the cecum, ascending colon, transverse colon, descending colon normal. The sigmoid colon there was a 3 mm polyp that was removed by cold biopsy. Rest of the, sigmoid colon, and rectum appeared normal. Retroflexion was performed in the rectum and no lesions were seen. The patient tolerated the procedure well. IMPRESSION: 3 mm sigmoid colon polyp status post removed by cold biopsy Rest of the colon appeared normal. RECOMMENDATIONS: Findings of this examination were discussed with the patient as well as her family. She was advised to with the biopsy results. If the biopsy reveals adenoma she can have repeat colonoscopy in 5 years..
[2024-08-15 13:14] VITALS: RESP 14
[2024-08-15 13:25] VITALS: BP 137/66; PULSE 53
== END 2024-08-15 13:42 | disposition home or self-care (01) ==
LOC: ORWHC2ENDO 10:46
PROVIDERS: ATTEND Internal Medicine Gastroenterology
DX: Z12.11 Encounter for screening for malignant neoplasm of colon (principal); K63.5 Polyp of colon; I10 Essential (primary) hypertension; E78.5 Hyperlipidemia, unspecified; L40.9 Psoriasis, unspecified; F17.210 Nicotine dependence, cigarettes, uncomplicated; Z79.899 Other long term (current) drug therapy
CPT/HCPCS: 45380; J2704; 88305